=== PATIENT | male | born 1990 | race Caucasian/White ===

== ENCOUNTER 2022-05-23 21:34 | Emergency (ER) | payer OTHER ==
[~2022-05-23] VITALS: Ht 177.8 cm; Wt 72.6 kg
[2022-05-23 21:36] VITALS: BP_SYST 156
--- NOTE | 2022-05-23 21:39 | NUR ---
FELT "RAPID HEARTRATE" X 20 MINUTES. HISTORY OF ANXIETY. NO CHEST PAIN. STATES HE RECENTLY STOPPED SMOKING [place] FOR ANXIETY. STATES THE LAST TIME HE FELT ABNORMAL HEARTRATE WAS WHEN HE WAS ON METH FOUR YEARS AGO, HAS BEEN CLEAN FOR FOUR YEARS.
--- NOTE | 2022-05-23 21:40 | NUR ---
Patient placed in bed 5; placed on playground monitor. Patient A/Ox4. Patient c/o sob and heart palpitations. Patient denies N/V/D, fever. Patient in bed with side rails raised. Patients significant other at bedside.
--- NOTE | 2022-05-23 21:42 | NUR ---
FRANSISCO DIAZ at bedside.
[2022-05-23] MEDS ORDERED: dilTIAZem HCL IVP 5 MG/ML VIAL IVP ONE ×2 (22:00→22:15)
[2022-05-23] MEDS ORDERED: NACL 0.9% 1,000 ML IV ONE (22:15)
--- NOTE | 2022-05-23 22:23 | NUR ---
Assisting primary RN Lorie with care of patient. Pt moved to bed 1 at this time and placed on cardiac specialist/defibrillator for higher level of care.
[2022-05-23 22:39] LABS: BASOPHILS % (AUTO) 0.5 % (0.0-2.0); EOSINOPHILS # (AUTO) 0.1 K/uL (0.0-0.4); EOSINOPHILS % (AUTO) 1.2 % (0.0-4.0); HEMATOCRIT 42.2 % (36-54); LYMPHOCYTES # (AUTO) 2.5 K/uL (1.0-5.5); LYMPHOCYTES % (AUTO) 32.9 % (20.5-51.5); MEAN CORPUSCULAR HEMOGLOBIN 29 pg (27-31); MEAN CORPUSCULAR HGB CONC 36 % (32-36); MEAN CORPUSCULAR VOLUME 82 fL (79.0-98.0); MONOCYTES # (AUTO) 0.6 K/uL (0.0-1.0); MONOCYTES % (AUTO) 7.6 % (1.7-9.3); NEUTROPHILS # (AUTO) 4.3 K/uL (1.8-7.7); NEUTROPHILS % (AUTO) 57.8 % (40.0-70.0); PLATELET COUNT (AUTO) 200 K/uL (130-430); RED BLOOD CELL COUNT(AUTO) 5.17 MIL/uL (4.2-6.2); RED CELL DISTRIBUTION WIDTH 12.5 % (9.0-15.0); WHITE BLOOD COUNT (AUTO) 7.5 K/uL (4.8-10.8)
[2022-05-23 22:41] LABS: HEMOGLOBIN 15.1 g/dL (14.0-18.0)
[2022-05-23 22:52] LABS: ANION GAP 7 (5-15); CALCIUM 9.2 mg/dL (8.4-11.0); CHLORIDE 104 mmol/L (98-107); CREATININE 0.83 mg/dL (0.55-1.30); GLUCOSE 143 mg/dL (70-99); POTASSIUM 3.4 mmol/L (3.5-5.1); SODIUM SERUM 140 mmol/L (136-145); UREA NITROGEN, BLOOD 14 mg/dL (8-21)
[2022-05-23 23:01] LABS: ALANINE AMINOTRANSFERASE 34 U/L (12-78); ALBUMIN 4.4 g/dL (3.4-4.8); ASPARTATE AMINOTRANSFERASE 10 U/L (10-37); GFR AFRICAN AMERICAN 140 mL/min (>90); TOTAL BILIRUBIN 0.8 mg/dL (0.0-1.0)
[2022-05-23 23:22] LABS: CORRECTED WHITE BLOOD COUNT 7.5 K/uL (4.5-11.0)
[2022-05-23 23:24] LABS: THYROID STIMULATING HORMONE 1.95 uIu/mL (0.36-3.74)
[2022-05-23 23:26] LABS: BILIRUBIN,URINE NEGATIVE (NEGATIVE); BLOOD, URINE NEGATIVE (NEGATIVE); CLARITY/URINE CLEAR (CLEAR); COLOR,URINE YELLOW (YELLOW); GLUCOSE,URINE NEGATIVE (NEGATIVE); KETONES,URINE NEGATIVE (NEGATIVE); LEUKOCYTE ESTERASE ,URINE NEGATIVE (NEGATIVE); NITRITE, URINE NEGATIVE (NEGATIVE); PROTEIN URINE NEGATIVE (NEGATIVE); UROBILINOGEN,URINE 0.2 (0.2-1.0)
[2022-05-23] MEDS ORDERED: ETOMIDATE 20 MG/ 10 ML VIAL (AMIDATE) IVP ONE (23:30)
[2022-05-23] MEDS ORDERED: fentaNYL CITRATE/PF 100 MCG/2 ML AMP IVP ONE (23:30)
[2022-05-23] MEDS ORDERED: PROPOFOL 200MG/ 20ML VIAL (DIPRIVAN) IV ONE (23:45)
--- NOTE | 2022-05-24 00:04 | NUR ---
Conscious sedation time out at this time. ER MD Sorto, RT, and nursing staff at bedside.
--- NOTE | 2022-05-24 00:05 | NUR ---
50mg Propofol administered per ER MD bedside order.
--- NOTE | 2022-05-24 00:05 | NUR ---
ER Meds given by ER MD Sorto in ER bedside. See paper charting.
--- NOTE | 2022-05-24 00:07 | NUR ---
10mg Etomidate via IV given per ER MD bedside orders.
--- NOTE | 2022-05-24 00:08 | NUR ---
At this time patient has sync cardiovert done starting at 100J. Patient tolerated procedure well.
--- NOTE | 2022-05-24 00:09 | NUR ---
Patient given 25mg Propofol per ER MD Sorto bedside order. Patient tolerated medication well.
--- NOTE | 2022-05-24 00:13 | NUR ---
Patient given 2mg Versed per ER MD Sorto bedside order. Patient tolerated medication well.
--- NOTE | 2022-05-24 00:14 | NUR ---
Patient given 25mg Propofol per ER MD Sorto bedside order. Patient tolerated medication well.
--- NOTE | 2022-05-24 00:15 | NUR ---
At this time patient has second sync cardiovert done starting at 150J. Patient tolerated procedure well.
[2022-05-24] MEDS ORDERED: MIDAZOLAM HCL 5 MG/5 ML VIAL ONE (00:16)
--- NOTE | 2022-05-24 00:16 | NUR ---
Patient achieved NSR at this time.
--- NOTE | 2022-05-24 00:22 | NUR ---
Repeat EKG done by GREGG Rodrigez; and given to ER MD Sorto at this time.
[2022-05-24 00:28] LABS: BARBITURATE, URINE NEGATIVE (NEG <=200); BENZODIAZEPINE, URINE NEGATIVE (NEG <=150); CANNABINOID, URINE POSITIVE (NEG <=50); COCAINE, URINE NEGATIVE (NEG <=150); METHAMPHETAMINES SCREEN,URINE NEGATIVE (NEG <=500); OPIATE, URINE NEGATIVE (NEG <=100); PHENCYCLIDINE SCREEN,URINE NEGATIVE (NEG <=25); UR TRICYCLIC ANTIDEPRESSANTS NEGATIVE (NEG <=300); URINE AMPHETAMINE NEGATIVE (NEG <=500); URINE METHADONE NEGATIVE (NEG <=200); URINE OXYCODONE SCREEN NEGATIVE (NEG <=100); URINE PROPOXYPHENE SCREEN NEGATIVE (NEG <=300)
--- NOTE | 2022-05-24 01:06 | NUR ---
Carl swab walked to lab at this time.
--- NOTE | 2022-05-24 03:30 | NUR ---
Patient resting comfortably in bed with side rails raised. Patient given cup of water per patient request. NAD noted at this time.
[2022-05-24] MEDS ORDERED: MIDAZOLAM HCL 5 MG/5 ML VIAL IVP ONE (04:30)
--- NOTE | 2022-05-24 05:10 | NUR ---
Called [facility] in [place] and gave report to BEE Olson to endorse care of patient. ALS transport at bedside at the moment to take patient to receiving facility.
[2022-05-24 05:15] VITALS: BP_SYST 134
== END 2022-05-24 05:10 | disposition short-term general hospital (02) ==
LOC: SED 21:34
DX: I48.0 Paroxysmal atrial fibrillation (principal); R00.2 Palpitations; R06.02 Shortness of breath; Z88.0 Allergy status to penicillin; Z79.899 Other long term (current) drug therapy; Z20.822 Contact with and (suspected) exposure to COVID-19
CPT/HCPCS: 99291; 96374; 71045; 96361; 87426; 80307; 80053; 83735; 84443; 85025; 84484; 36415; 84436; 99152; 81003; 96375; 93005; J3490 ×2; J2704; J7030; J2250